=== PATIENT | female | born 1985 | race Caucasian/White ===

== ENCOUNTER 2016-06-16 14:39 | Emergency (ER) | payer BC ==
[~2016-06-16] VITALS: Ht 154.9 cm; Wt 101.9 kg
[~2016-06-16 14:39] MED LIST: BCPILLS PO
[2016-06-16 14:44] VITALS: TEMP 36.7; Ht 154.9 cm; Wt 101.9 kg
[2016-06-16] MEDS ORDERED: ATV5X PO (15:06)
[2016-06-16] MEDS ORDERED: RIZA10TA18 PO (15:06)
[2016-06-16] MEDS ORDERED: CITA20TA9 PO (15:06)
[2016-06-16] MEDS ORDERED: PRLSR20 PO (15:06)
[2016-06-16] MEDS ORDERED: TOPI50TA16 PO (15:06)
[2016-06-16] MEDS ORDERED: DEXAMETHASONE SOD INJ 4 MG/ML VIAL IM ONE (15:30)
[2016-06-16] MEDS ORDERED: PRED20TA PO (15:37)
[2016-06-16] MEDS ORDERED: OXYC-57 PO (15:37)
--- NOTE | 2016-06-16 15:39 | EMERGENCY ROOM VISIT NOTE ---
ED Visit Note First contact with patient: 14:58 CHIEF COMPLAINT: Neck pain HISTORY OF PRESENT ILLNESS: This 31-year-old female patient presents to the emergency department ambulatory complaining of pain in the neck which began 4 months ago. The patient reports that since February of last year, she has had pain in her neck which radiates into both of her shoulders. She states the pain occasionally radiates into her arms, especially her right arm. She has had a feeling of pins and needles in the right arm today. She has seen her primary care provider for this and they performed x-rays, which showed a degree of cervical muscle spasms. She states that they told her she would need an MRI , but had to do physical therapy first. She has been doing physical therapy for 2.5 weeks with no relief of the pain. She has been taking ibuprofen without relief. She was prescribed a muscle relaxer and tramadol and states that the muscle relaxer made her tired, and the tramadol did not help her pain. The patient rates the pain as achy and 9/10. The patient does not have a history of previous neck problems. The patient denies numbness or weakness. The patient denies chest pain or shortness of breath. No recent trauma. The patient denies headache, blurred vision, abdominal pain, nausea, or vomiting. REVIEW OF SYSTEMS: A 6 system review of systems was completed with positives and pertinent negatives listed in the HPI. ALLERGIES: No known drug allergies MEDICATIONS: See med list PMH: Prior tonsillectomy. No significant past medical history. SOCIAL HISTORY: The patient lives locally with her . She is a smoker and denies alcohol use. PHYSICAL EXAM: VITALS: Vitals are noted on the nurse's note and reviewed by myself. Vital signs stable. GENERAL: This is a 31-year-old female, in no acute distress, nondiaphoretic, well-developed well-nourished. SKIN: Capillary reflex less than 2 seconds. HEENT: Normocephalic. PERRLA. EOMI. Nares patent. Mucous membranes moist. Neck is supple without nuchal rigidity. Cervical spine is not tender to palpation. The patient has mild tenderness of the paraspinal muscles bilaterally. There is no lymphadenopathy. MUSCULOSKELETAL: The patient has full range of motion of the bilateral arms. Strength 5/5 of the bilateral upper extremities. The patient has full range of motion of the neck. NEURO: Patient was alert and oriented to person place and time. Normal sensation to light and sharp touch. No focal neurologic deficits. EMERGENCY DEPARTMENT COURSE: I examined the patient. I did review x-rays which she had as an outpatient which show a small degree of muscle spasm, but no acute findings. The patient has a normal neurological exam. There is no numbness or weakness. I do not feel that she needs an emergent MRI, and she does have an appointment set up with her primary care provider this week for recheck. I do feel that it is reasonable to place her on a prednisone taper and give her a short course of Percocet for pain. The [place] prescription drug monitoring program was queried and no red flags were identified. The patient was instructed to return for any worsening or new/ concerning symptoms. She verbalized understanding of my assessment and treatment plan and was discharged home in good condition. DIAGNOSIS: Neck pain Problem List Medical Problems: (1) Depression Status: Chronic (2) Fibromyalgia Status: Chronic (3) Food poisoning Status: Resolved (4) Headache Status: Resolved (5) Hematuria Status: Resolved (6) Migraine Status: Chronic (7) Nausea, vomiting, and diarrhea Status: Resolved (8) Nausea, vomiting, and diarrhea Status: Resolved (9) Nausea, vomiting, and diarrhea Status: Resolved Current/Historical Medications Scheduled Control Pills ( Control Pills), 1 TAB PO DAILY Citalopram Hydrobromide (Celexa), 20 MG PO QAM Omeprazole (Prilosec), 20 MG PO QAM Prednisone (Prednisone), 0 PO DAILY Topiramate (Topamax), 50 MG PO QAM Scheduled PRN Lorazepam (Lorazepam), 0.5 MG PO DAILY PRN for Anxiety Oxycodone/Acetaminophen 5MG/325MG (Percocet 5MG/325MG), 1 TAB PO Q4H PRN for Pain Rizatriptan Benzoate (Maxalt), 10 MG PO UD PRN for Migraine Allergies Coded Allergies: No Known Allergies (Unverified , 06/16/16) Vital Signs Date Time Temp Pulse Resp B/P Pulse Ox O2 Delivery O2 Flow Rate FiO2 06/16/16 14:44 36.7 99 18 157/100 95 Room Air Medications Administered Medications (Trade) Dose Ordered Sig/Fco Route Start Time Stop Time Status Last Admin Dose Admin Dexamethasone Sodium Phosphate (Decadron Inj) 10 mg STK-MED ONCE .ROUTE 06/16/16 15:42 06/16/16 15:43 DC 06/16/16 15:39 10 MG Departure Information Impression Primary Impression: Neck pain Dispostion Home / Self-Care Condition GOOD Prescriptions Oxycodone/Acetaminophen 5MG/325MG (PERCOCET 5MG/325MG) Tab 1 TAB PO Q4H Y for Pain, #15 TAB For Initial Treatment Prov: Bea Fields PA-C 06/16/16 Prednisone (Prednisone) 20 Mg Tab 0 PO DAILY, #18 TAB 3 DAILY FOR 3 DAYS, THEN 2 DAILY FOR 3 DAYS, THEN 1 DAILY FOR 3 DAYS. Prov: Bea Fields PA-C 06/16/16 Referrals Vijay Jones M.D. (PCP) Patient Instructions My [facility] Additional Instructions You have been treated in the Emergency Department for Neck Pain. You have been prescribed Percocet 1-2 tabs every 4-6 hours as needed for pain. This is a narcotic medication. You cannot drive or consume alcohol while on this medicine. This medicine should only be used for pain that cannot be controlled with [id number] pain medicines. Take the prednisone as prescribed. You may start this medication tomorrow. For pain control, you can use the following [id number] medicines (if >12 yo): - Regular strength (325mg/tab) Tylenol (acetaminophen) 2 tabs every 4-6 hours as needed. Do not exceed 12 tablets in a 24 hour period. Avoid taking more than 4 grams (4000 mg) of Tylenol per day. This includes any other sources of acetaminophen you may take on a regular basis. - Regular strength (200 mg/tab) Advil (ibuprofen) 1-2 tabs every 4-6 hours as needed. Do not exceed a dose of 3200 mg per day. If this is an acute injury, ice can be applied to the area of pain for the first 3 days to help decrease pain and inflammation. After the first 3 days, a heating pad can be used over the area for continued soothing relief. Follow-up with your family doctor as scheduled. Return to the Emergency Department if your current symptoms worsen despite treatment course outlined above, or if you develop any of the following symptoms : intractable pain despite aforementioned treatment course, facial droop, slurred speech, unilateral weakness, or worsening of her current symptoms.
[2016-06-16] MEDS ORDERED: DEXAMETHASONE SOD INJ 10 MG/ML VIAL ONE (15:42)
[2016-06-16 15:58] VITALS: BP 146/86; PULSE 84; O2SAT 97
== END 2016-06-16 16:00 | disposition home or self-care (01) ==
LOC: C.EDB 14:41 → C.EDD 16:00
DX: M54.2 Cervicalgia (principal); F32.9 Major depressive disorder, single episode, unspecified; F17.200 Nicotine dependence, unspecified, uncomplicated; Z98.890 Other specified postprocedural states; Z79.899 Other long term (current) drug therapy

== ENCOUNTER → 2016-09-13 | Outpatient (CLI) | payer BC ==
[~2016-09-13] MED LIST changes: +ATV5X PO; +CITA20TA9 PO; +OXYC-57 PO; +PRED20TA PO; +PRLSR20 PO; +RIZA10TA18 PO; +TOPI50TA16 PO
== END | disposition home or self-care (01) ==
LOC: C.PATHSPEC 16:53
PROVIDERS: ATTEND Nurse Practitioner Adult Health
DX: R31.29 Other microscopic hematuria (principal)

== ENCOUNTER → 2016-09-21 | Outpatient (CLI) | payer BC ==
[~2016-09-21] MED LIST changes: +OPTIRAY 320 IV PRN
--- NOTE | 2016-09-21 07:30 | DIAGNOSTIC IMAGING REPORT ---
ABD/PELVIS COMBO HISTORY: 31 years Female R31.9 [id number] microhematuria COMPARISON: Radiographs of the abdomen 02/19/2014 TECHNIQUE: Multiple axial CT images of the abdomen and pelvis were obtained both with and without the intravenous administration of 119 mL 320. FINDINGS: Imaged lung bases are generally clear. There is no pneumoperitoneum. Imaged inferior cardiac chambers are unremarkable. There is decreased attenuation of the hepatic parenchyma suggesting fatty infiltration. Gallbladder is mildly contracted. The spleen, pancreas and adrenal glands appear normal. Noncontrast images demonstrate no evidence of nephro lithiasis. The bilateral ureters appear normal. The urinary bladder is collapsed. No filling defects within the collecting systems. There is a 3.8 x 3.6 cm left adnexal cystic lesion noted suggesting ovarian cyst. Uterus and right adnexum are unremarkable. The abdominal aorta is normal in both course and caliber. There is no bulky retroperitoneal adenopathy. No bowel obstruction. Majority of the colon is collapsed. The appendix appears normal. Soft tissues are unremarkable. Bones appear intact. Disc bulging is seen at L4-L5 and L5-S1. IMPRESSION: 1. No acute intra-abdominal or intrapelvic abnormality identified. No renal calculi or obstructive uropathy. 2. Left ovarian cyst, 3.8 cm could be further evaluated with pelvic ultrasound if clinically indicated. 3. Fatty infiltration of the liver. The above report was generated using voice recognition software. It may contain grammatical, syntax or spelling errors. Electronically signed by: Deandre Serna M.D. 09/21/2016 7:29 AM Dictated Date/Time: 09/21/2016 7:22 AM
== END | disposition home or self-care (01) ==
LOC: C.CTS 06:31
PROVIDERS: ATTEND Nurse Practitioner Adult Health
DX: R31.29 Other microscopic hematuria (principal); N83.209 Unspecified ovarian cyst, unspecified side; K76.0 Fatty (change of) liver, not elsewhere classified

== ENCOUNTER 2017-01-16 20:22 | Emergency (ER) | payer BC ==
[~2017-01-16] VITALS: Ht 154.9 cm; Wt 101.7 kg
[~2017-01-16 20:22] MED LIST changes: -OPTIRAY 320 IV PRN; -OXYC-57 PO; -PRED20TA PO
[2017-01-16 20:24] VITALS: TEMP 36.9; Ht 154.9 cm; Wt 101.7 kg
[2017-01-16] MEDS ORDERED: DiphenhydrAMINE HCL 50 MG/ML VIAL IV STA (20:39)
[2017-01-16] MEDS ORDERED: SODIUM CHLORIDE 0.9% 1000ML 1,000 ML IV STA (20:39)
[2017-01-16] MEDS ORDERED: PROCHLORPERAZINE 5 MG/ML 2 ML VIAL IV STA (20:39)
[2017-01-16] MEDS ORDERED: KETOROLAC TROMETHAMINE 30 MG/ML VIAL IV STA (20:39)
[2017-01-16 21:43] VITALS: BP 127/78; PULSE 67; O2SAT 98
--- NOTE | 2017-01-16 22:03 | EMERGENCY ROOM VISIT NOTE ---
History Report prepared by Sofia: Samuel Rey Under the Supervision of: Dr. Yovani Osborn D.O. First contact with patient: 20:30 Chief Complaint: HEADACHE Stated Complaint: MIGRAINE History of Present Illness The patient is a 31 year old female who presents to the Emergency Room with complaints of a worsening migraine headache that started upon waking this morning. She says that she has a history of migraines, and has been getting them since she was 18 years old. The patient states that before 4 months ago, she was getting a migraine 4 or 5 times per month, but she had her medications adjusted, and since then, she has only been having a migraine every 2 months. The patient notes that her migraine gradually worsened as the day went on, and is on the front of her head. She describes her pain as dull and achy, and rates the pain as a 10 out of 10 in severity. The patient adds that light and noise are bothering her. The patient states that she has had an intermittent right ear ache today. She says that these symptoms are similar to her previous migraines, but this one is very intense. She denies any changes in vision, fevers, chest pain, abdominal pain, or numbness or weakness in her arms or legs. Source of History: patient Onset: Upon waking this morning Position: head Symptom Intensity: 10/10 Quality: other (migraine) Timing: worsening Associated Symptoms: No fevers, No chest pain, No abdominal pain, No weakness, No numbness Note: Associated symptoms: Sensitivity to noises and lights. Right ear ache. Denies changes in vision. Review of Systems See HPI for pertinent positives & negatives. A total of 10 systems reviewed and were otherwise negative. Past Medical & Surgical Medical Problems: (1) Depression (2) Fibromyalgia (3) Food poisoning (4) Headache (5) Hematuria (6) Migraine (7) Nausea, vomiting, and diarrhea (8) Nausea, vomiting, and diarrhea (9) Nausea, vomiting, and diarrhea Family History Diabetes mellitus FH: gallbladder disease FH: heart disease Hypertension Kidney disease Kidney stones Seizures Social History Smoking Status: Current Every Day Smoker Alcohol Use: occasionally Drug Use: none Marital Status: Housing Status: lives with significant other Occupation Status: employed Current/Historical Medications Scheduled Control Pills ( Control Pills), 1 TAB PO DAILY Citalopram Hydrobromide (Celexa), 20 MG PO QAM Omeprazole (Prilosec), 20 MG PO QAM Topiramate (Topamax), 50 MG PO QAM Scheduled PRN Lorazepam (Lorazepam), 0.5 MG PO DAILY PRN for Anxiety Rizatriptan Benzoate (Maxalt), 10 MG PO UD PRN for Migraine Allergies Coded Allergies: No Known Allergies (Unverified , 06/16/16) Physical Exam Vital Signs Date Time Temp Pulse Resp B/P (MAP) Pulse Ox O2 Delivery O2 Flow Rate FiO2 01/16/17 21:43 67 16 127/78 98 Room Air 01/16/17 20:24 36.9 72 20 128/84 96 Room Air Physical Exam GENERAL: Sitting up in bed with glasses on, alert, well appearing, well nourished, no distress, non-toxic EYE EXAM: normal conjunctiva. PERRL and EOM's intact. Funduscopic exam: optic disc without papillary edema/sharp. OROPHARYNX: no exudate, no erythema, lips, buccal mucosa, and tongue normal and mucous membranes are moist NECK: supple, no nuchal rigidity, no adenopathy, non-tender LUNGS: Clear to auscultation. Normal chest wall mechanics HEART: no murmurs, S1 normal and S2 normal ABDOMEN: abdomen soft, non-tender, normo-active bowel sounds, no masses, no rebound or guarding. BACK: Back is symmetrical on inspection and there is no deformity, no midline tenderness, no CVA tenderness. SKIN: no rashes and no bruising UPPER EXTREMITIES: upper extremities are grossly normal. LOWER EXTREMITIES: No pitting edema. NEURO EXAM: Normal sensorium, cranial nerves II-XII intact, normal speech, no weakness of arms, no weakness of legs. No drift. Finger to nose intact. Gross sensation intact. Rapid alternating movements of upper extremities intact. Medical Decision & Procedures Medications Administered Medications (Trade) Dose Ordered Sig/Fco Route Start Time Stop Time Status Last Admin Dose Admin Sodium Chloride 1,000 ml @ 999 mls/hr Q1H1M STAT IV 01/16/17 20:39 01/16/17 21:39 DC 01/16/17 20:55 999 MLS/HR Prochlorperazine Edisylate (Compazine Inj) 5 mg NOW STAT IV 01/16/17 20:39 01/16/17 20:40 DC 01/16/17 21:08 5 MG Ketorolac Tromethamine (Toradol Inj) 30 mg NOW STAT IV 01/16/17 20:39 01/16/17 20:40 DC 01/16/17 21:07 30 MG Diphenhydramine HCl (Benadryl Inj) 25 mg NOW STAT IV 01/16/17 20:39 01/16/17 20:40 DC 01/16/17 21:08 25 MG ED Course ED COURSE: Vital signs were reviewed and showed normal vitals. The patients medical record was reviewed The above diagnostic studies were performed and reviewed. ED treatments and interventions as stated above. 2029: The patient was evaluated in room C8. A complete history and physical examination was performed. 2038: Ordered Benadryl Inj 25 mg IV, Toradol Inj 30 mg IV, Compazine Inj 5 mg IV , NSS 1000 ml @ 999 mls/hr IV. 2125: Upon reevaluation, the patient is feeling better, and her headache is down to a 3.I discussed my findings with the patient and she understands and agrees with the treatment plan. Based on the patients age, coexisting illnesses, exam and lab findings the decision to treat as an outpatient was made. The patient remained stable while under my care. The patient appeared well at the time of discharge. Medical Decision Differential diagnosis: Etiologies such as migraine headache, meningitis, sinusitis, CO exposure, ICH, SAH, infection, tumor, headache, sinus thrombosis, arterial dissection, as well as others were entertained. Patient is a 31-year-old female who presents to ER for headache which came on gradually and grossly worsened today. She has had migraines since the age of 18. She notes she normally gets 4-5 per month. For this past 4 months with her medication changes she has been getting a migraine once every other month. No fevers. No stiff neck. Neurologically intact. No nuchal rigidity. No signs meningitis or encephalitis on exam. Patient notes this is consistent with her typical migraines and unchanged in any way with the exception of the intensity. Patient was given IV fluids, Benadryl, Toradol and Compazine. She had near complete resolution of her headache. She was feeling significantly better and discharged to follow-up with PCP. Instructed not to drive for the remainder of the night. Discussed with Pt concerning signs and symptoms to watch out for. Pt was instructed to follow up with their PCP and discussed with the patient their option to return to the ED at anytime for persistent or worsening symptoms. The appropriate anticipatory guidance and out-patient management, including indications for return to the emergency department, were explained at length to the patient and understood. Medication Reconcilliation Current Medication List: was personally reviewed by me Blood Pressure Screening Patient's blood pressure: Normal blood pressure Impression Primary Impression: Headache Scribe Attestation The scribe's documentation has been prepared under my direction and personally reviewed by me in its entirety. I confirm that the note above accurately reflects all work, treatment, procedures, and medical decision making performed by me. Departure Information Dispostion Home / Self-Care Referrals Vijay Jones M.D. (PCP) Patient Instructions Headache Pain, My [facility] Additional Instructions Please follow up with your primary care doctor or if you are a student, [facility] with in the next 24 hours. Any worsening of your symptoms, please return to the ED immediately. This includes any fevers greater than 100.4, worsening pain, change in vision, weakness or numbness in your arms or legs, confusion, chest pain, shortness breath, persistent nausea, vomiting, unable to eat or drink, or any other concerning signs or symptoms from your standpoint. You were given medications during this visit that will inhibit your ability to drive, operate machinery and work. Please do NOT drive, operate machinery, drink alcohol or work for the next 12hrs. Problem Qualifiers Primary Impression: Headache Headache type: unspecified Headache chronicity pattern: unspecified pattern Intractability: not intractable Qualified Codes: R51 - Headache
== END 2017-01-16 21:45 | disposition home or self-care (01) ==
LOC: C.EDB 20:23 → C.EDC 21:45
DX: R51 Headache (principal); F32.9 Major depressive disorder, single episode, unspecified; M79.7 Fibromyalgia; Z83.3 Family history of diabetes mellitus; Z82.49 Family history of ischemic heart disease and other diseases of the circulatory system; Z82.0 Family history of epilepsy and other diseases of the nervous system; F17.200 Nicotine dependence, unspecified, uncomplicated